=== PATIENT | male | born 1965 | race African-American/Black ===

== ENCOUNTER 2016-07-19 14:42 | Inpatient (IN) | payer OTHER ==
[2016-07-19 15:54] VITALS: BMI 26.9
--- NOTE | 2016-07-19 20:03 | HP ---
COWS - Scale Resting Pulse: 0= [place] 80 or Below Sweatin= Chills/Flushing Restless Observation: 3= Extraneous Movement Pupil Size: 2= Moderately Dilated Bone or Joint Aches: 2= Severe Diffuse Aches Runny Nose/ Eye Tearin= Runny Nose/Eyes GI Upset > 30mins: 3= Vomiting/Diarrhea Tremor Observation: 2= Slight Tremor Visible Yawning Observation: 0= None Anxiety or Irritability: 2=Irritable/Anxious Goose Flesh Skin: 3=Piloerection COWS Score: 20 Admission ROS S - [facility] Chief Complaint: withdrawal sx Allergies/Adverse Reactions: Allergies Allergy/AdvReac Type Severity Reaction Status Date / Time No Known Allergies Allergy Verified 07/19/16 18:14 History of Present Illness: 50 years old male with long history of opiate nicotine dependence hypothyroid and schizophrenia bipolar type, longest sobriety 1 year, is admitted to detox Exam Limitations: No Limitations - Ebola screening Have you traveled outside of the country in the last 21 days: No Have you had contact with anyone from an Ebola affected area: No Have you been sick,other than usual withdrawal symptoms: No Do you have a fever: No - Review of Systems Constitutional: Chills, Changes in sleep, Weight Stable EENT: reports: Other (eye glasses) Respiratory: reports: SOB with Exertion Cardiac: reports: No Symptoms Reported GI: reports: Diarrhea, Nausea, Poor Fluid Intake, Vomiting, Abdominal cramping : reports: No Symptoms Reported Musculoskeletal: reports: Back Pain, Joint Pain, Muscle Pain, Neck Pain Integumentary: reports: No Symptoms Reported Neuro: reports: Tremors Endocrine: reports: No Symptoms Reported Hematology: reports: No Symptoms Reported Psychiatric: reports: Judgement Intact, Orientated x3, Anxious, Depressed Other Systems: Reviewed and Negative Patient History - Patient Medical History Hx Anemia: No Hx Asthma: No Hx Chronic Obstructive Pulmonary Disease (COPD): No Hx Cancer: No Hx Cardiac Disorders: No Hx Congestive Heart Failure: No Hx Hypertension: No Hx Hypercholesterolemia: No Hx Pacemaker: No HX Cerebrovascular Accident: No Hx Seizures: No Hx Dementia: No Hx Diabetes: No Hx Gastrointestinal Disorders: No Hx Liver Disease: No Hx Genitourinary Disorders: No Hx Sexually Transmitted Disorders: No Hx Renal Disease (ESRD): No Hx Thyroid Disease: Yes Hx Human Immunodeficiency Virus (HIV): No Hx Hepatitis C: No Hx Depression: No Hx Suicide Attempt: No Hx Bipolar Disorder: No Hx Schizophrenia: Yes - Patient Surgical History Past Surgical History: No Hx Neurologic Surgery: No Hx Cataract Extraction: No Hx Cardiac Surgery: No Hx Lung Surgery: No Hx Breast Surgery: No Hx Breast Biopsy: No Hx Abdominal Surgery: Yes (ingrunal 2000 x 2) Hx Appendectomy: No Hx Cholecystectomy: No Hx Genitourinary Surgery: No Hx Orthopedic Surgery: No Anesthesia Reaction: No - PPD History Previous Implant?: Yes Documented Results: Positive w/o proof Implanted On Prior R Admission?: No PPD to be Administered?: No - Smoking Cessation Smoking history: Current every day smoker Have you smoked in the past 12 months: Yes Aproximately how many cigarettes per day: 20 Cigars Per Day: 0 Hx Chewing Tobacco Use: No Initiated information on smoking cessation: Yes 'Breaking Loose' booklet given: 07/19/16 - Substance & Tx. History Hx Alcohol Use: No Hx Substance Use: Yes Substance Use Type: Opiates Hx Substance Use Treatment: Yes - Substances Abused Heroin Route: Inhalation Frequency: Daily Amount used: 3 BAGS Age of first use: 29 Date of Last Use: 07/19/16 Family Disease History - Family Disease History Family Disease History: Diabetes: Mother, Other: Father (no contact) Other Family History: only child Admission Physical Exam BHS - Vital Signs Vital Signs: Vital Signs - 24 hr 07/19/16 15:52 Temperature 97.4 F L Pulse Rate 53 L Respiratory 20 Rate Blood Pressure 114/63 - Physical General Appearance: Yes: Nourished, Appropriately Dressed, Moderate Distress, Tremorous, Irritable, Sweating, Anxious HEENTM: Yes: Hearing grossly Normal, Normal ENT Inspection, Normocephalic, Normal Voice Respiratory: Yes: Chest Non-Tender, Lungs Clear, Normal Breath Sounds, No Respiratory Distress, No Accessory Muscle Use Neck: Yes: Supple, Trachea in good position Breast: Yes: Breasts Symetrical Cardiology: Yes: Regular Rhythm, S1, S2, Bradycardia Abdominal: Yes: Non Tender, Soft Genitourinary: Yes: Within Normal Limits Back: Yes: Normal Inspection Musculoskeletal: Yes: full range of Motion, Gait Steady Extremities: Yes: Normal Range of Motion, Non-Tender, Tremors Neurological: Yes: Fully Oriented, Alert, Motor Strength 5/5, Normal Response, Depressed Affect Integumentary: Yes: Warm, Moist Lymphatic: Yes: Within Normal Limits - Diagnostic (1) Opioid dependence with withdrawal Current Visit: Yes Status: Acute (2) Hypothyroid Current Visit: Yes Status: Acute Qualifiers: Hypothyroidism type: due to acquired atrophy of thyroid Qualified Code(s): E03.4 - Atrophy of thyroid (acquired) (3) Nicotine dependence Current Visit: Yes Status: Acute Qualifiers: Nicotine product type: cigarettes Substance use status: in withdrawal Qualified Code(s): F17.213 - Nicotine dependence, cigarettes, with withdrawal (4) Positive PPD, treated Current Visit: Yes Status: Resolved Comment: chest x ray pending (5) Neurogenic arthritis Current Visit: Yes Status: Acute Comment: neurontin (6) Schizophrenia Current Visit: Yes Status: Suspected Qualifiers: Schizophrenia type: paranoid schizophrenia Qualified Code(s): F20.0 - Paranoid schizophrenia Comment: seroquel Cleared for Admission S - Detox or Rehab [facility] Level of Care: Medically Managed Detox Regimen/Protocol: Methadone S Breath Alcohol Content Breath Alcohol Content: 0 Urine Drug Screen - Results Drug Screen Negative: No Urine Drug Screen Results: OPI-Opiates, OXY-Oxycodone
[2016-07-19] MEDS ORDERED: P-EPHED 60MG/TRIPROLIDI 2.5MG TABLET PO PRN (20:07)
[2016-07-19] MEDS ORDERED: ACETAMINOPHEN 325 MG TABLET (FP) PO PRN (20:07)
[2016-07-19] MEDS ORDERED: METHADONE HCL 10 MG TABLET (FOR DETOX USE ONLY) PO ONE ×2 (20:07→23:00)
[2016-07-19] MEDS ORDERED: MAG HYDROX/AL HYDROX/SIMETH 30 ML UNIT-DOSE CUP PO PRN (20:07)
[2016-07-19] MEDS ORDERED: MAGNESIUM CITRATE 300 ML BOTTLE PO PRN (20:07)
[2016-07-19] MEDS ORDERED: MENTHOL/PHENOL 1 EACH UD MM PRN (20:07)
[2016-07-19] MEDS ORDERED: NICOTINE POLACRILEX 2 MG GUM BC PRN (20:07)
[2016-07-19] MEDS ORDERED: IBUPROFEN 400 MG TABLET (FP) PO PRN (20:07)
[2016-07-19] MEDS ORDERED: LOPERAMIDE HCL 2 MG CAPSULE PO PRN (20:07)
[2016-07-19] MEDS ORDERED: guaiFENesin/D-METHORPHAN HB 10 ML UNIT-DOSE CUPS PO PRN (20:07)
[2016-07-19] MEDS ORDERED: MAGNESIUM HYDROX 2400MG/30ML ORAL SUSPENSION 30 ML CUP PO PRN (20:07)
[2016-07-19] MEDS: diazePAM 5 MG TABLET PO PRN (21:01)
[2016-07-19] MEDS: diphenhydrAMINE HCL 50 MG CAPSULE PO PRN (22:11)
[2016-07-19] MEDS: THIAMINE HCL 100 MG TABLET (FP) PO SCH (22:11)
[2016-07-20 00:03] LABS: URINE APPEARANCE CLEAR; URINE BILIRUBIN NEGATIVE (NEGATIVE); URINE COLOR STRAW; URINE GLUCOSE (UA) NEGATIVE (NEGATIVE); URINE KETONE NEGATIVE (NEGATIVE); URINE LEUK ESTERASE NEGATIVE (NEGATIVE); URINE NITRITE NEGATIVE (NEGATIVE); URINE PROTEIN NEGATIVE (NEGATIVE); URINE UROBILINOGEN NEGATIVE E.U./dl (0.2-1.0)
[2016-07-20 00:05] LABS: URINE BLOOD 3+ (NEGATIVE)
[2016-07-20 00:49] LABS: URINE RBC 81 /hpf (0-3); URINE WBC 1 /hpf (3-5)
[2016-07-20] MEDS: diazePAM 5 MG TABLET PO PRN (05:44)
[2016-07-20] MEDS ORDERED: LEVOTHYROXINE NA 25 MCG TABLET (FP) ONE (06:03)
[2016-07-20] MEDS ORDERED: LEVOTHYROXINE NA 100 MCG TABLET (FP) ONE (06:03)
[2016-07-20] MEDS: LEVOTHYROXINE 100 MCG, LEVOTHYROXINE 50 MCG PO SCH (06:11)
[2016-07-20] MEDS ORDERED: LEVOTHYROXINE NA 150 MCG TABLET PO SCH (07:00)
[2016-07-20] MEDS ORDERED: METHADONE HCL 10 MG TABLET (FOR DETOX USE ONLY) PO ONE (10:00)
[2016-07-20 10:02] LABS: MCH 32.7 pg (25.7-33.7); MCHC 34.1 g/dl (32.0-35.9); MEAN PLT VOLUME 9.6 fl (7.5-11.1); PLATELET COUNT 179 K/MM3 (134-434); RDW 13.7 % (11.9-15.9); WHITE BLOOD COUNT 6.3 K/mm3 (4.0-10.0)
[2016-07-20] MEDS: GABAPENTIN 300 MG CAPSULE (FP) PO SCH (10:04)
[2016-07-20] MEDS: PRENATAL VITAMINS W/ FOLIC ACID TABLET (FP) PO SCH (10:04)
[2016-07-20] MEDS: NICOTINE 21 MG/24 HOURS TOPICAL PATCH TD SCH (10:04)
--- NOTE | 2016-07-20 10:35 | PN ---
BHS COWS - Scale Resting Pulse: 0= [place] 80 or Below Sweatin=Flushed/Facial Moisture Restless Observation: 1= Difficult to Sit Still Pupil Size: 0= Normal to Room Light Bone or Joint Aches: 2= Severe Diffuse Aches Runny Nose/ Eye Tearin= Runny Nose/Eyes GI Upset > 30mins: 2= Nausea/Diarrhea Tremor Observation of Outstretched Hands: 2= Slight Tremor Visible Yawning Observation: 1= 1-2x During Session Anxiety or Irritability: 2=Irritable/Anxious Goose Flesh Skin: 0=Smooth Skin COWS Score: 14 BHS Progress Note (SOAP) Subjective: anxiety,tremors,sweating,interrupted sleep,muscle aches/spasm Objective: 07/20/16 10:34 Vital Signs - 8 hr 07/20/16 07/20/16 03:30 06:18 Temperature 97.2 F L Pulse Rate 63 Respiratory 18 18 Rate Blood Pressure 118/60 Laboratory Tests 07/19/16 07/20/16 07/20/16 22:00 07:00 07:00 WBC 6.3 RBC 3.87 L Hgb 12.7 Hct 37.2 MCV 96.0 MCHC 34.1 RDW 13.7 Plt Count 179 MPV 9.6 Sodium 144 Potassium 4.0 Chloride 107 Urine Color Straw Urine Appearance Clear Urine pH 7.0 Ur Specific [place] 1.009 Urine Protein Negative Urine Glucose (UA) Negative Urine Ketones Negative Urine Blood 3+ H Urine Nitrite Negative Urine Bilirubin Negative Urine Urobilinogen Negative Ur Leukocyte Esterase Negative Urine RBC 81 Urine WBC 1 labs noted Assessment: 07/20/16 10:35 withdrawal sx. Plan: continue detox
[2016-07-20 10:40] LABS: ALK PHOS 61 U/L (45-117); ANION GAP 9 (8-16); BILIRUBIN,TOTAL 0.1 mg/dL (0.2-1.0); CALCIUM 8.3 mg/dL (8.5-10.1); CO2 28 mmol/L (21-32); GLUCOSE,RANDOM 93 mg/dL (74-106); SGOT/AST 18 U/L (15-37); SGPT/ALT 18 U/L (12-78); TOT PROT 5.7 g/dl (6.4-8.2)
--- NOTE | 2016-07-20 10:42 | CONSULT ---
[facility] Psychiatric Consult - Data Date of interview: 07/20/16 Admission source: [facility] Identifying data: First admission to [facility] for this 50 y/o AA male seeking detox treatment on for heroin dependence.Patient is domiciled (lives with ),employed,a father of two (lost his 28 y/o son to homicide/one daughter lives in [place]) and self-sufficient. Substance Abuse History: - Smoking Cessation. Smoking history: Current every day smoker. Have you smoked in the past 12 months: Yes. Aproximately how many cigarettes per day: 20. Cigars Per Day: 0. Hx Chewing Tobacco Use: No. Initiated information on smoking cessation: Yes. 'Breaking Loose' booklet given : 07/19/16. - Substance & Tx. History. Hx Alcohol Use: No. Hx Substance Use: Yes. Substance Use Type: Opiates. Hx Substance Use Treatment: Yes. - Substances Abused. Heroin. Route: Inhalation. Frequency: Daily. Amount used: 3 BAGS. Age of first use: 29. Date of Last Use: 07/19/16. Confirmed by patient im my interview. Medical History: Hypothyroidism. Psychiatric History: No reported history of psychiatric hospitalizations.No OPD care.Mr Echevarria informs that he has stopped taking seroquel " for a while ".Diagnosis endorsed :Bipolar Disorder.Patient was released from [facility] in July 2015 (33 cumulative years of incarceration) and he was scheduled for intake,at different times,for intake evaluation at various mental health clinics.No Show.Mr Echevarria denies history of suicide attempts.He,now,requests " some seroquel for my insomnia." Physical/Sexual Abuse/Trauma History: No history of sexual abuse. Additional Comment: Urine Drug Screen Results: OPI-Opiates, OXY-Oxycodone.Noted. Mental Status Exam - Mental Status Exam Alert and Oriented to: Time, Place, Person Cognitive Function: Good Patient Appearance: Well Groomed Mood: Hopeful, Euthymic Affect: Appropriate, Normal Range Patient Behavior: Appropriate, Cooperative Speech Pattern: Clear, Appropriate Voice Loudness: Normal Thought Process: Goal Oriented Thought Disorder: Not Present Hallucinations: Denies Suicidal Ideation: Denies Homicidal Ideation: Denies Insight/Judgement: Poor Sleep: Poorly, Difficulty falling asleep Appetite: Good Muscle strength/Tone: Normal Gait/Station: Normal Psychiatric Findings - Problem List ([place] 1, 2,3) (1) Nicotine dependence Current Visit: Yes Status: Acute Qualifiers: Nicotine product type: cigarettes Substance use status: in withdrawal Qualified Code(s): F17.213 - Nicotine dependence, cigarettes, with withdrawal (2) Opioid dependence with withdrawal Current Visit: Yes Status: Acute (3) Bipolar disorder Current Visit: Yes Status: Chronic Comment: No symptom elicited.Self-report. (4) Hypothyroid Current Visit: Yes Status: Acute Qualifiers: Hypothyroidism type: due to acquired atrophy of thyroid Qualified Code(s): E03.4 - Atrophy of thyroid (acquired) (5) Neurogenic arthritis Current Visit: Yes Status: Chronic Comment: neurontin (6) Positive PPD, treated Current Visit: Yes Status: Resolved Comment: chest x ray pending - Initial Treatment Plan Initial Treatment Plan: Psychoeducation.Detoxification.Seroquel 100 mg po hs.Side effects/benefits discusssed with the patient.He agrees with this careplan.Observation.
[2016-07-20] MEDS: THIAMINE HCL 100 MG TABLET (FP) PO SCH (22:16)
[2016-07-20] MEDS: QUEtiapine FUMARATE 100 MG TABLET (FP) PO SCH (22:16)
--- NOTE | 2016-07-20 23:35 | EKG ---
Test Reason : Blood Pressure : / mmHG Vent. Rate : 055 BPM Atrial Rate : 055 BPM P-R Int : 180 ms QRS Dur : 096 ms QT Int : 476 ms P-R-T Axes : 059 060 128 degrees QTc Int : 455 ms SINUS BRADYCARDIA LEFT VENTRICULAR HYPERTROPHY WITH REPOLARIZATION ABNORMALITY T WAVE ABNORMALITY, CONSIDER ANTEROLATERAL ISCHEMIA ABNORMAL ECG WHEN COMPARED WITH ECG OF 19-JUL-2016 21:16, NO SIGNIFICANT CHANGE WAS FOUND Confirmed by REGINALDO PAYNE, WALLY ([id number]) on 07/20/2016 11:34:50 PM Referred By: Confirmed By:WALLY HAIR MD
--- NOTE | 2016-07-20 23:35 | EKG ---
Test Reason : Blood Pressure : / mmHG Vent. Rate : 052 BPM Atrial Rate : 052 BPM P-R Int : 158 ms QRS Dur : 090 ms QT Int : 492 ms P-R-T Axes : 066 067 136 degrees QTc Int : 457 ms SINUS BRADYCARDIA POSSIBLE LEFT ATRIAL ENLARGEMENT LEFT VENTRICULAR HYPERTROPHY ABNORMAL ECG NO PREVIOUS ECGS AVAILABLE Confirmed by REGINALDO PAYNE, WALLY ([id number]) on 07/20/2016 11:35:03 PM Referred By: Confirmed By:WALLY HAIR MD
[2016-07-21] MEDS ORDERED: LEVOTHYROXINE NA 25 MCG TABLET (FP) ONE (03:28)
[2016-07-21] MEDS ORDERED: LEVOTHYROXINE NA 100 MCG TABLET (FP) ONE (03:28)
[2016-07-21] MEDS: diazePAM 5 MG TABLET PO PRN (05:54)
[2016-07-21] MEDS: LEVOTHYROXINE 100 MCG, LEVOTHYROXINE 50 MCG PO SCH (06:11)
[2016-07-21] MEDS ORDERED: METHADONE HCL 5 MG TABLET (FOR DETOX USE ONLY) PO ONE (10:00)
[2016-07-21] MEDS: GABAPENTIN 300 MG CAPSULE (FP) PO SCH (10:06)
[2016-07-21] MEDS: PRENATAL VITAMINS W/ FOLIC ACID TABLET (FP) PO SCH (10:06)
[2016-07-21] MEDS: NICOTINE 21 MG/24 HOURS TOPICAL PATCH TD SCH (10:06)
[2016-07-21] MEDS ORDERED: ALBUTEROL SO4 6.7 GM HFA INHALER IH ONE (11:16)
[2016-07-21] MEDS ORDERED: ALBUTEROL SO4 6.7 GM HFA INHALER IH PRN (11:24)
--- NOTE | 2016-07-21 15:35 | PN ---
BHS COWS - Scale Resting Pulse: 0= [place] 80 or Below Sweatin=Flushed/Facial Moisture Restless Observation: 1= Difficult to Sit Still Pupil Size: 0= Normal to Room Light Bone or Joint Aches: 2= Severe Diffuse Aches Runny Nose/ Eye Tearin= Runny Nose/Eyes GI Upset > 30mins: 2= Nausea/Diarrhea Tremor Observation of Outstretched Hands: 2= Slight Tremor Visible Yawning Observation: 1= 1-2x During Session Anxiety or Irritability: 2=Irritable/Anxious Goose Flesh Skin: 0=Smooth Skin COWS Score: 14 BHS Progress Note (SOAP) Subjective: anxiety,sweating,tremors,interrupted sleep,restless. Objective: 07/21/16 15:34 Vital Signs - 8 hr 07/21/16 07/21/16 07/21/16 09:40 14:45 14:47 Temperature 97.9 F 97 F L 97 F L Pulse Rate 71 82 82 Respiratory 18 20 20 Rate Blood Pressure 114/65 112/71 112/71 Laboratory Tests 07/19/16 07/20/16 07/20/16 22:00 07:00 07:00 WBC 6.3 RBC 3.87 L Hgb 12.7 Hct 37.2 MCV 96.0 MCHC 34.1 RDW 13.7 Plt Count 179 MPV 9.6 Sodium 144 Potassium 4.0 Chloride 107 Carbon Dioxide 28 Anion Gap 9 BUN 16 Creatinine 1.0 Creat Clearance w eGFR > 60 Random Glucose 93 Calcium 8.3 L Total Bilirubin 0.1 L AST 18 ALT 18 Alkaline Phosphatase 61 Total Protein 5.7 L Albumin 3.0 L TSH 24.70 H Urine Color Straw Urine Appearance Clear Urine pH 7.0 Ur Specific [place] 1.009 Urine Protein Negative Urine Glucose (UA) Negative Urine Ketones Negative Urine Blood 3+ H Urine Nitrite Negative Urine Bilirubin Negative Urine Urobilinogen Negative Ur Leukocyte Esterase Negative Urine RBC 81 Urine WBC 1 RPR Titer 07/20/16 07:00 WBC RBC Hgb Hct MCV MCHC RDW Plt Count MPV Sodium Potassium Chloride Carbon Dioxide Anion Gap BUN Creatinine Creat Clearance w eGFR Random Glucose Calcium Total Bilirubin AST ALT Alkaline Phosphatase Total Protein Albumin TSH Urine Color Urine Appearance Urine pH Ur Specific [place] Urine Protein Urine Glucose (UA) Urine Ketones Urine Blood Urine Nitrite Urine Bilirubin Urine Urobilinogen Ur Leukocyte Esterase Urine RBC Urine WBC RPR Titer Nonreactive labs noted Assessment: 07/21/16 15:35 withdrawal sx. Plan: continue detox
[2016-07-21] MEDS: THIAMINE HCL 100 MG TABLET (FP) PO SCH (22:11)
[2016-07-21] MEDS: QUEtiapine FUMARATE 100 MG TABLET (FP) PO SCH (22:11)
[2016-07-22] MEDS ORDERED: LEVOTHYROXINE NA 25 MCG TABLET (FP) ONE (04:05)
[2016-07-22] MEDS ORDERED: LEVOTHYROXINE NA 100 MCG TABLET (FP) ONE (04:05)
[2016-07-22] MEDS: diazePAM 5 MG TABLET PO PRN ×3 (05:31→18:06)
[2016-07-22] MEDS: LEVOTHYROXINE 100 MCG, LEVOTHYROXINE 50 MCG PO SCH (06:09)
[2016-07-22] MEDS ORDERED: METHADONE HCL 5 MG TABLET (FOR DETOX USE ONLY) PO ONE (10:00)
[2016-07-22] MEDS: PRENATAL VITAMINS W/ FOLIC ACID TABLET (FP) PO SCH (10:12)
[2016-07-22] MEDS: GABAPENTIN 300 MG CAPSULE (FP) PO SCH (10:12)
[2016-07-22] MEDS: NICOTINE 21 MG/24 HOURS TOPICAL PATCH TD SCH (10:12)
--- NOTE | 2016-07-22 11:03 | PN ---
BHS Progress Note (SOAP) Subjective: SWEATING,INTERRUPTED SLEEP,RESTLESS Objective: 07/22/16 11:02 Vital Signs - 8 hr 07/22/16 07/22/16 07/22/16 03:25 06:06 09:19 Temperature 96.4 F L 95.9 F L Pulse Rate 54 L 57 L Respiratory 18 16 18 Rate Blood Pressure 103/61 106/61 Laboratory Tests 07/19/16 07/20/16 07/20/16 22:00 07:00 07:00 WBC 6.3 RBC 3.87 L Hgb 12.7 Hct 37.2 MCV 96.0 MCHC 34.1 RDW 13.7 Plt Count 179 MPV 9.6 Sodium 144 Potassium 4.0 Chloride 107 Carbon Dioxide 28 Anion Gap 9 BUN 16 Creatinine 1.0 Creat Clearance w eGFR > 60 Random Glucose 93 Calcium 8.3 L Total Bilirubin 0.1 L AST 18 ALT 18 Alkaline Phosphatase 61 Total Protein 5.7 L Albumin 3.0 L TSH 24.70 H Urine Color Straw Urine Appearance Clear Urine pH 7.0 Ur Specific [place] 1.009 Urine Protein Negative Urine Glucose (UA) Negative Urine Ketones Negative Urine Blood 3+ H Urine Nitrite Negative Urine Bilirubin Negative Urine Urobilinogen Negative Ur Leukocyte Esterase Negative Urine RBC 81 Urine WBC 1 RPR Titer 07/20/16 07:00 WBC RBC Hgb Hct MCV MCHC RDW Plt Count MPV Sodium Potassium Chloride Carbon Dioxide Anion Gap BUN Creatinine Creat Clearance w eGFR Random Glucose Calcium Total Bilirubin AST ALT Alkaline Phosphatase Total Protein Albumin TSH Urine Color Urine Appearance Urine pH Ur Specific [place] Urine Protein Urine Glucose (UA) Urine Ketones Urine Blood Urine Nitrite Urine Bilirubin Urine Urobilinogen Ur Leukocyte Esterase Urine RBC Urine WBC RPR Titer Nonreactive LABS NOTED Assessment: 07/22/16 11:03 WITHDRAWAL SX. Plan: CONTINUE DETOX
[2016-07-22] MEDS: QUEtiapine FUMARATE 100 MG TABLET (FP) PO SCH (22:13)
[2016-07-22] MEDS: THIAMINE HCL 100 MG TABLET (FP) PO SCH (22:13)
[2016-07-23] MEDS: diphenhydrAMINE HCL 50 MG CAPSULE PO PRN ×2 (01:32→22:16)
[2016-07-23] MEDS ORDERED: LEVOTHYROXINE NA 25 MCG TABLET (FP) ONE (03:17)
[2016-07-23] MEDS ORDERED: LEVOTHYROXINE NA 100 MCG TABLET (FP) ONE (03:18)
[2016-07-23] MEDS: LEVOTHYROXINE 100 MCG, LEVOTHYROXINE 50 MCG PO SCH (07:08)
[2016-07-23] MEDS ORDERED: METHADONE HCL 10 MG TABLET (FOR DETOX USE ONLY) PO ONE (10:00)
[2016-07-23] MEDS: PRENATAL VITAMINS W/ FOLIC ACID TABLET (FP) PO SCH (10:15)
[2016-07-23] MEDS: GABAPENTIN 300 MG CAPSULE (FP) PO SCH (10:15)
[2016-07-23] MEDS: NICOTINE 21 MG/24 HOURS TOPICAL PATCH TD SCH (10:15)
--- NOTE | 2016-07-23 10:43 | PN ---
BHS Progress Note (SOAP) Subjective: nausea, sweats, interrupted sleep, anxiety, tremors Objective: 07/23/16 10:42 Vital Signs - 8 hr 07/23/16 07/23/16 07/23/16 03:33 06:20 09:47 Temperature 95.8 F L 97.6 F Pulse Rate 57 L 61 Respiratory 18 18 20 Rate Blood Pressure 125/69 115/66 Laboratory Tests 07/19/16 07/20/16 07/20/16 22:00 07:00 07:00 WBC 6.3 RBC 3.87 L Hgb 12.7 Hct 37.2 MCV 96.0 MCHC 34.1 RDW 13.7 Plt Count 179 MPV 9.6 Sodium 144 Potassium 4.0 Chloride 107 Carbon Dioxide 28 Anion Gap 9 BUN 16 Creatinine 1.0 Creat Clearance w eGFR > 60 Random Glucose 93 Calcium 8.3 L Total Bilirubin 0.1 L AST 18 ALT 18 Alkaline Phosphatase 61 Total Protein 5.7 L Albumin 3.0 L TSH 24.70 H Urine Color Straw Urine Appearance Clear Urine pH 7.0 Ur Specific [place] 1.009 Urine Protein Negative Urine Glucose (UA) Negative Urine Ketones Negative Urine Blood 3+ H Urine Nitrite Negative Urine Bilirubin Negative Urine Urobilinogen Negative Ur Leukocyte Esterase Negative Urine RBC 81 Urine WBC 1 RPR Titer 07/20/16 07:00 WBC RBC Hgb Hct MCV MCHC RDW Plt Count MPV Sodium Potassium Chloride Carbon Dioxide Anion Gap BUN Creatinine Creat Clearance w eGFR Random Glucose Calcium Total Bilirubin AST ALT Alkaline Phosphatase Total Protein Albumin TSH Urine Color Urine Appearance Urine pH Ur Specific [place] Urine Protein Urine Glucose (UA) Urine Ketones Urine Blood Urine Nitrite Urine Bilirubin Urine Urobilinogen Ur Leukocyte Esterase Urine RBC Urine WBC RPR Titer Nonreactive elevated tsh, hypothyroidism Assessment: 07/23/16 10:43 withdrawal sx, hypothyroidism, elevated tsh 2/2 non comp;iance with medications 2/2 drug use Plan: cont detox, fluids, thyroxine
[2016-07-23] MEDS: QUEtiapine FUMARATE 100 MG TABLET (FP) PO SCH (22:16)
[2016-07-23] MEDS: THIAMINE HCL 100 MG TABLET (FP) PO SCH (22:16)
[2016-07-23 22:31] VITALS: TEMP 97.1
[2016-07-24] MEDS ORDERED: LEVOTHYROXINE NA 100 MCG TABLET (FP) ONE (05:11)
[2016-07-24] MEDS ORDERED: LEVOTHYROXINE NA 25 MCG TABLET (FP) ONE (05:11)
[2016-07-24] MEDS ORDERED: METHADONE HCL 5 MG TABLET (FOR DETOX USE ONLY) PO ONE (06:00)
[2016-07-24] MEDS: LEVOTHYROXINE 100 MCG, LEVOTHYROXINE 50 MCG PO SCH (06:03)
[2016-07-24 06:32] VITALS: BP 109/63; PULSE 52
--- NOTE | 2016-07-24 08:55 | DS ---
[facility] Detox Discharge Summary Admission Date: 07/19/16 Discharge Date: 07/24/16 - History Present History: Opioid Dependence Pertinent Past History: nicotine depenendence, hypothyroidsims, bipolar do, anxiety, depression and insomnia - Physical Exam Results Vital Signs: Vital Signs Temperature 97.1 F L 07/24/16 06:32 Pulse Rate 52 L 07/24/16 06:32 Respiratory Rate 18 07/24/16 06:32 Blood Pressure 109/63 07/24/16 06:32 O2 Sat by Pulse Oximetry (%) Pertinent Admission Physical Exam Findings: withdrawal sx - Treatment Hospital Course: Detox Protocol Followed, Detoxed Safely, Responded well, Discharged Condition Good, Rehab Referral Accepted - Medication Discharge Medications: Ambulatory Orders Quetiapine Fumarate [Seroquel -] 300 mg PO HS 07/19/16 Sertraline HCl [Zoloft -] 100 mg PO DAILY 07/19/16 Quetiapine Fumarate [Seroquel -] 200 mg PO HS #30 tab 07/20/16 Albuterol Sulfate Inhaler - [Ventolin HFA Inhaler -] 1 - 2 inh PO Q4H PRN #1 inhaler 07/24/16 Gabapentin [Neurontin -] 300 mg PO DAILY #30 capsule 07/24/16 Levothyroxine [Synthroid -] 150 mcg PO DAILY #30 tablet 07/24/16 - Diagnosis (1) Hypothyroid Current Visit: Yes Status: Chronic Qualifiers: Hypothyroidism type: due to acquired atrophy of thyroid Qualified Code(s): E03.4 - Atrophy of thyroid (acquired) (2) Nicotine dependence Current Visit: Yes Status: Acute Qualifiers: Nicotine product type: cigarettes Substance use status: in withdrawal Qualified Code(s): F17.213 - Nicotine dependence, cigarettes, with withdrawal (3) Opioid dependence with withdrawal Current Visit: Yes Status: Acute (4) Bipolar disorder Current Visit: Yes Status: Chronic (5) Neurogenic arthritis Current Visit: Yes Status: Chronic (6) Schizophrenia Current Visit: Yes Status: Suspected Qualifiers: Schizophrenia type: paranoid schizophrenia Qualified Code(s): F20.0 - Paranoid schizophrenia (7) Positive PPD, treated Current Visit: Yes Status: Chronic - AMA Did Patient Leave Against Medical Advice: No
== END 2016-07-24 09:46 | disposition home or self-care (01) | DRG 773 ==
LOC: YASAS 14:42 → Y3N 19:42
PROVIDERS: ADMIT Internal Medicine; ATTEND Internal Medicine
PROC: HZ2ZZZZ Detoxification Services for Substance Abuse Treatment (ICD-10-PCS; principal; 2016-07-24)
DX: F11.23 Opioid dependence with withdrawal (principal); F17.213 Nicotine dependence, cigarettes, with withdrawal; F20.0 Paranoid schizophrenia; R76.11 Nonspecific reaction to tuberculin skin test without active tuberculosis; G98.0 Neurogenic arthritis, not elsewhere classified
CPT/HCPCS: 36415; 71020-TC; 80053; 81003; 81015; 84443; 85027; 86593; 93005; 93010